=== PATIENT | female | born 1960 | race African-American/Black ===

== ENCOUNTER 2018-01-24 20:53 | Emergency (ER) | payer BC ==
[2018-01-24 21:09] VITALS: BP 143/91; PULSE 126; TEMP 98.3; BMI 20.7
--- NOTE | 2018-01-24 21:48 | PDOC ---
History of Present Illness <Casey Martínez - Last Filed: 01/25/18 01:51> - History of Present Illness Initial Comments: 01/24/18 21:43 57 year old woman with a history of HTN who presents with 1 week of feelings of anxiety, decrease sleep, lack of interest in activities, poor sleep and general weakness since her mother was hospitalized. She reports that her PCP started her on Sertraline and Hydroxyzine which she took for 1 day but stopped because she did not like how the medications made her feel "numb". She notes that she wants to feel better before she travels to the [facility] to visit her mother. She denies any chest pain, fevers, SOB, headache, abdominal pain, nausea , vomiting, diarrhea or constipation. Denies SI/HI. She has no other complaints at bedside. PMHX: HTN PSHX: none Tob: none Etoh: none Rec drugs: none Meds: amlodipine Allergies: none <Ludivina Jon - Last Filed: 01/26/18 07:39> - General Chief Complaint: Pain Stated Complaint: PAIN Time Seen by Provider: 01/24/18 21:17 Past History <Casey Martínez - Last Filed: 01/25/18 01:51> - Past Medical History COPD: No HTN: Yes - Suicide/Smoking/Psychosocial Hx Smoking History: Never smoked <Ludivina Jon - Last Filed: 01/26/18 07:39> - Past Medical History Allergies/Adverse Reactions: Allergies Allergy/AdvReac Type Severity Reaction Status Date / Time No Known Allergies Allergy Verified 01/24/18 21:09 Home Medications: Ambulatory Orders Alprazolam [Xanax] 0.25 mg PO DAILY PRN #5 tablet MDD 1 01/25/18 Review of Systems - Review of Systems Able to Perform ROS?: Yes Is the patient limited Israeli proficient: No Constitutional: No: Chills, Diaphoresis, Fever HEENTM: No: Blurred Vision, Nose Congestion, Tinnitus, Throat Swelling Respiratory: No: Cough, Orthopnea, Shortness of Breath Cardiac (ROS): No: Chest Pain, Lightheadedness, Palpitations ABD/GI: No: Constipated, Nausea, Vomiting Musculoskeletal: Yes: Muscle Weakness Neurological: No: Headache, Numbness, Tingling Endocrine: No: Excessive Sweating, Intolerance to Cold, Intolerance to Heat <Ludivina Jon - Last Filed: 01/26/18 07:39> *Physical Exam - Vital Signs Last Vital Signs Temp Pulse Resp BP Pulse Ox 98.3 F 126 H 20 143/91 99 01/24/18 21:05 01/24/18 21:05 01/24/18 21:05 01/24/18 21:05 01/24/18 21:05 <Casey Martínez - Last Filed: 01/25/18 01:51> - Vital Signs Last Vital Signs Temp Pulse Resp BP Pulse Ox 98.3 F 126 H 20 143/91 99 01/24/18 21:05 01/24/18 21:05 01/24/18 21:05 01/24/18 21:05 01/24/18 21:05 - Physical Exam Comments: 01/24/18 21:49 GENERAL: Awake, alert, and fully oriented, mildly anxious HEAD: No signs of trauma, normocephalic, atraumatic EYES: EOMI, sclera anicteric, conjunctiva clear ENT: Auricles normal inspection, hearing grossly normal, nares patent, oropharynx clear without exudates. Moist mucosa NECK: Normal ROM, supple, no lymphadenopathy, no thyromegaly or masses LUNGS: No distress, speaks full sentences, clear to auscultation bilaterally HEART: tachycardic, regular rhythm, normal S1 and S2, no murmurs, rubs or gallops, peripheral pulses normal and equal bilaterally. ABDOMEN: Soft, nontender, normoactive bowel sounds. No guarding, no rebound. No masses EXTREMITIES : Normal inspection, Normal range of motion, no edema. No clubbing or cyanosis. NEUROLOGICAL: Normal speech, normal gait, no focal sensorimotor deficits SKIN: Warm, Dry, normal turgor, no rashes or lesions noted <JulietmeredithLudivina - Last Filed: 01/26/18 07:39> ED Treatment Course - LABORATORY CBC & Chemistry Diagram: 01/24/18 23:22 01/24/18 23:22 - ADDITIONAL ORDERS Additional order review: Laboratory Results 01/24/18 01/24/18 01/24/18 23:22 23:22 23:22 Sodium 140 Potassium 3.8 Chloride 101 Carbon Dioxide 32 Anion Gap 7 L BUN 17 Creatinine 0.8 Creat Clearance w eGFR > 60 Random Glucose 71 L Calcium 9.7 Total Bilirubin 0.4 AST 19 ALT 25 Alkaline Phosphatase 48 Troponin I < 0.02 Total Protein 7.3 Albumin 3.8 TSH 2.14 Urine Color Ltyellow Urine Appearance Clear Urine pH 7.0 Ur Specific [place] 1.010 Urine Protein Negative Urine Glucose (UA) Negative Urine Ketones Negative Urine Blood Negative Urine Nitrite Negative Urine Bilirubin Negative Urine Urobilinogen Negative Ur Leukocyte Esterase Negative 01/24/18 23:22 RBC 4.51 MCV 85.6 MCHC 32.6 RDW 13.1 MPV 10.0 Neutrophils % 67.9 Lymphocytes % 21.4 Monocytes % 8.6 Eosinophils % 1.6 Basophils % 0.5 - Medications Given in the ED: ED Medications Discontinued Medications Generic Name Dose Route Start Last Admin Trade Name Jeq PRN Reason Stop Dose Admin Alprazolam 0.25 mg 01/24/18 21:59 01/24/18 22:00 Xanax - PO 01/24/18 22:00 0.25 mg ONCE ONE Administration Sodium Chloride 1,000 mls @ 1,000 mls/hr 01/24/18 21:58 01/24/18 22:30 Normal Saline - IV 01/24/18 22:57 1,000 mls/hr .Q1H ONE Administration <Casey Martínez - Last Filed: 01/25/18 01:51> - LABORATORY CBC & Chemistry Diagram: 01/24/18 23:22 01/24/18 23:22 <Ludivina Jon - Last Filed: 01/26/18 07:39> Medical Decision Making - Medical Decision Making 01/24/18 21:51 57 year old woman with a history of HTN who presents with 1 week of feelings of anxiety, decrease sleep, lack of interest in activities, poor sleep and general weakness since her mother was hospitalized. Her symptoms and history are concerning for adjustment disorder vs depressive episode vs anxiety vs hyperthyroidism vs anemia vs arrythmia. We will evaluate for this etiologies. Patient feels improved with xanax. Workup was unremarkable. Patient stable for discharge, given referral to psychiatry and advised to follow up with psych and PCP within 1 week. <Ludivina Jon - Last Filed: 01/26/18 07:39> *DC/Admit/Observation/Transfer - Discharge Dispostion Decision to Admit order: No <Casey Martínez - Last Filed: 01/25/18 01:51> <Ludivina Jon - Last Filed: 01/26/18 07:39> Diagnosis at time of Disposition: Anxiety - Discharge Dispostion Disposition: HOME Condition at time of disposition: Improved - Prescriptions Prescriptions: Alprazolam [Xanax] 0.25 mg PO DAILY PRN #5 tablet MDD 1 PRN Reason: Anxiety - Referrals Referrals: Milo Munoz MD [Primary Care Provider] - Maisha Calles MD [Staff Physician] - - Patient Instructions Printed Discharge Instructions: DI for Anxiety -- Adult Additional Instructions: You were seen in the ED for symptoms of feeling unwell and not like yourself. I suspect your symptoms were due to anxiety. You were evaluated with labwork in the ED and felt better with medications. Your results did not show an immediate need for medical admission to the hospital. You will be given a short course of xanax to help relieve your symptoms. Do not drive when taking your medications. You are advised to follow up with your primary care physician within 1 week. You are given a referral for a psychiatrist today and are advised to follow up win 1 week for further treatment and evaluation of symptoms. - Post Discharge Activity
--- NOTE | 2018-01-24 21:56 | PDOC ---
Attending Attestation - Resident Resident Name: Ludivina Jon - ED Attending Attestation I have performed the following: I have examined & evaluated the patient, The case was reviewed & discussed with the resident, I agree w/resident's findings & plan, Exceptions are as noted - HPI HPI: 01/24/18 22:11 The patient is a 57 year old female with past medical history of HTN presents to the emergency department with anxiety. The patient states secondary to personal family matters shes been experiencing increased anxiety accompanied with lack of sleep and the sensation of a knot in the stomach, with decreased appetite and fatigue for the past 1 week. The patient reports following up with PCP 3 days prior, who prescribed Sertraline and Hydroxyzine. The patient reports taking the medication for a day, but secondary to nausea she became noncompliant. The patient states she is traveling to the [facility] to see her mother, who is currently hospitalized. Denies fever, chills cough or a headache. Denies nausea or vomiting. Denies chest pain or shortness of breath. Denies diarrhea or constipation. Denies dizziness or vertigo Allergies: NKDA Social history: None reported Surgical history: None reported PCP: Milo Munoz MD - Physicial Exam PE: 01/24/18 22:37 GENERAL: The patient is awake, alert, and fully oriented, Nontoxic - in no acute distress. HEAD: Normocephalic, atraumatic. EYES: extraocular movements intact, sclera anicteric, conjunctiva clear. ENT: Normal voice, dry mucous membranes. NECK: Normal range of motion, supple LUNGS: Breath sounds equal, clear to auscultation bilaterally. No wheezes, no rhonchi, no rales. HEART: slightly tachy, normal S1 and S2 without murmur, rub or gallop. ABDOMEN: Soft, nontender, No guarding, no rebound. . No CVA tenderness EXTREMITIES: Normal range of motion, no edema. NEUROLOGICAL: No facial assymetry, Normal speech, PSYCH: Normal mood, normal affect. SKIN: Warm, Dry, normal turgor, - Medical Decision Making 01/24/18 22:38 suspect anxiety w mild dehydration due to tachycardia will ck labs to r/o anemia,metabolic dernagement no cp/sob to suggest acs/pe will give small dose ofxanax fluids for hydraiton 01/25/18 00:16 labs reviewed unremarkble will dc the pt with pmd fu return precautions were discussed will give pt rx for a couple of xanax Heart Score/ECG Review - ECG Impressions Comment:: 01/25/18 01:21 Twelve-lead EKG was performed and reviewed by me. There is normal sinus rhythm with a normal rate. Rate of 91 The axis is normal. The intervals are normal. There is normal R wave progression There are no ST or T wave abnormalities.
[2018-01-24] MEDS ORDERED: SODIUM CHLORIDE 1,000 ML IV ONE (21:58)
[2018-01-24] MEDS ORDERED: ALPRAZolam 0.25 MG TABLET PO ONE (21:59)
[2018-01-24] MEDS ORDERED: ALPRAZolam 0.25 MG TABLET ONE (22:14)
[2018-01-24 23:32] LABS: BASO % 0.5 % (0-2.0); EOS % 1.6 % (0-4.5); HEMATOCRIT 38.6 % (32.4-45.2); HEMOGLOBIN 12.6 GM/dL (10.7-15.3); LYMPH % 21.4 % (8-40); MCH 27.9 pg (25.7-33.7); MCHC 32.6 g/dl (32.0-36.0); MEAN CELL VOLUME 85.6 fl (80-96); MONO % 8.6 % (3.8-10.2); NEUT % 67.9 % (42.8-82.8); PLATELET COUNT 176 K/MM3 (134-434); RBC 4.51 M/mm3 (3.60-5.2); RDW 13.1 % (11.6-15.6); WHITE BLOOD COUNT 6.1 K/mm3 (4.0-10.0)
[2018-01-24 23:33] LABS: URINE APPEARANCE CLEAR; URINE BILIRUBIN NEGATIVE (<2.0 mg/dL); URINE COLOR LTYELLOW; URINE GLUCOSE (UA) NEGATIVE (NEGATIVE); URINE KETONE NEGATIVE (NEGATIVE); URINE LEUK ESTERASE NEGATIVE (NEGATIVE); URINE NITRITE NEGATIVE (NEGATIVE); URINE PROTEIN NEGATIVE (NEGATIVE); URINE UROBILINOGEN NEGATIVE mg/dL (0.2-1.0)
[2018-01-24 23:52] LABS: ALBUMIN 3.8 g/dl (3.4-5.0); ANION GAP 7 (8-16); BILIRUBIN,TOTAL 0.4 mg/dL (0.2-1.0); BLOOD UREA NITROGEN 17 mg/dL (7-18); CALCIUM 9.7 mg/dL (8.5-10.1); CHLORIDE 101 mmol/L (98-107); CO2 32 mmol/L (21-32); CREATININE 0.8 mg/dL (0.55-1.02); GLUCOSE,RANDOM 71 mg/dL (74-106); POTASSIUM 3.8 mmol/L (3.5-5.1); SGOT/AST 19 U/L (15-37); SGPT/ALT 25 U/L (12-78); SODIUM 140 mmol/L (136-145); TOT PROT 7.3 g/dl (6.4-8.2)
[2018-01-24 23:55] LABS: ALK PHOS 48 U/L (45-117)
--- NOTE | 2018-01-26 10:25 | EKG ---
Test Reason : Blood Pressure : / mmHG Vent. Rate : 091 BPM Atrial Rate : 091 BPM P-R Int : 182 ms QRS Dur : 064 ms QT Int : 362 ms P-R-T Axes : 083 040 054 degrees QTc Int : 445 ms NORMAL SINUS RHYTHM POSSIBLE LEFT ATRIAL ENLARGEMENT BORDERLINE ECG NO PREVIOUS ECGS AVAILABLE Confirmed by RIGO MARCOS, RONAL ([id number]) on 01/26/2018 10:24:50 AM Referred By: Confirmed By:RONAL SIERRA MD
== END 2018-01-25 01:30 | disposition home or self-care (01) ==
LOC: JER 20:53
PROC: 3E0337Z Introduction of Electrolytic and Water Balance Substance into Peripheral Vein, Percutaneous Approach (ICD-10-PCS; principal; 2018-01-24)
DX: F41.9 Anxiety disorder, unspecified (principal); I10 Essential (primary) hypertension
CPT/HCPCS: 36415; 80053; 81003; 84443; 84484; 85025; 87086; 93005; 93010; 96360; 99283-25; J7030

== ENCOUNTER 2018-04-01 09:39 | Day surgery (SDC) | payer BC ==
[2018-03-26 10:54] VITALS: BMI 19.8
[2018-04-01] MEDS ORDERED: PROPOFOL 20 ML ONE ×2 (09:53)
[2018-04-01] MEDS ORDERED: LIDOCAINE HCL/PF 2% SDV 5ML VIAL ONE (09:59)
[2018-04-01 11:33] VITALS: PULSE 78
[2018-04-01 11:34] VITALS: BP 120/75; TEMP 98
== END 2018-04-01 11:34 | disposition home or self-care (01) ==
LOC: FASU-ENDO 09:39
PROVIDERS: ATTEND Internal Medicine Gastroenterology
PROC: 0DJD8ZZ Inspection of Lower Intestinal Tract, Via Natural or Artificial Opening Endoscopic (ICD-10-PCS; principal; 2018-04-01 10:19)
DX: K57.30 Diverticulosis of large intestine without perforation or abscess without bleeding (principal); K64.0 First degree hemorrhoids; R10.9 Unspecified abdominal pain

== ENCOUNTER 2018-05-13 10:55 | Day surgery (SDC) | payer BC ==
[2018-05-13] MEDS ORDERED: PROPOFOL 20 ML ONE ×2 (11:56)
[2018-05-13] MEDS ORDERED: LIDOCAINE HCL/PF 2% SDV 5ML VIAL ONE (11:56)
[2018-05-13 12:49] VITALS: TEMP 98.3
[2018-05-13 14:22] VITALS: BP 136/90; PULSE 93
--- NOTE | 2018-05-15 18:22 | PATH ---
Surgical Pathology Report Patient Name: DORY THOMPSON [facility]. Rec. #: [id number] /Age/Gender: 1960 (Age: 58) / F Account: [id number] Location: [facility] Taken: 05/13/2018 Received: 05/13/2018 Reported: 05/15/2018 Physicians: Martha Brown M.D. Specimen(s) Received A: 2ND PORTION OF DUODENUM B: DUODENAL BULB C: BX ANTRUM D: BX GE JUNCTION Clinical History Abdominal pain Postoperative diagnosis: Duodenitis, gastritis Final Diagnosis A. DUODENUM, SECOND PORTION, BIOPSY: DUODENAL MUCOSA WITH MILD CHRONIC DUODENITIS AND PRESERVED VILLOUS ARCHITECTURE. B. DUODENAL BULB, BIOPSY: DUODENAL MUCOSA WITH MILD TO MODERATE CHRONIC DUODENITIS AND PRESERVED VILLOUS ARCHITECTURE. C. STOMACH, ANTRUM, BIOPSY: GASTRIC ANTRAL MUCOSA WITH MODERATE TO SEVERE CHRONIC ACTIVE GASTRITIS. IMMUNOHISTOCHEMICAL STAIN FOR H. PYLORI IS POSITIVE (NUMEROUS). D. GE JUNCTION, BIOPSY: GASTRIC CARDIAC TYPE MUCOSA WITH MODERATE TO SEVERE CHRONIC ACTIVE GASTRITIS. HELICOBACTER (H. PYLORI) ORGANISMS PRESENT (MANY). NO SQUAMOUS MUCOSA, INTESTINAL METAPLASIA, OR DYSPLASIA IDENTIFIED. Comment: Organisms in parts C and D appear morphologically similar. Electronically Signed Martha Gonzales M.D. Gross Description A. Received in formalin, labeled "biopsy second portion of duodenum" are 3 hernandez, irregular portions of soft tissue ranging from 0.1-0.2 cm. in greatest dimension. The specimens are submitted in toto in one cassette. B. Received in formalin, labeled "biopsy duodenal bulb" are 2 hernandez, irregular portions of soft tissue measuring 0.1 and 0.3 cm. in greatest dimension. The specimens are submitted in toto in one cassette. C. Received in formalin, labeled "biopsy antrum" is a hernandez, irregular portion of soft tissue measuring 0.3 cm. in greatest dimension. The specimen is submitted in toto in one cassette. D. Received in formalin, labeled "biopsy GE junction" is a hernandez, irregular portion of soft tissue measuring 0.3 cm. in greatest dimension. The specimen is submitted in toto in one cassette. 05/14/2018 saudi05/14/2018
== END 2018-05-13 13:00 | disposition home or self-care (01) ==
LOC: FASU-ENDO 10:55
PROVIDERS: ATTEND Internal Medicine Gastroenterology
PROC: 0DB68ZX Excision of Stomach, Via Natural or Artificial Opening Endoscopic, Diagnostic (ICD-10-PCS; 2018-05-13)
PROC: 0DB48ZX Excision of Esophagogastric Junction, Via Natural or Artificial Opening Endoscopic, Diagnostic (ICD-10-PCS; 2018-05-13)
PROC: 0DB98ZX Excision of Duodenum, Via Natural or Artificial Opening Endoscopic, Diagnostic (ICD-10-PCS; principal; 2018-05-13 12:15)
DX: K29.50 Unspecified chronic gastritis without bleeding (principal); K29.80 Duodenitis without bleeding; B96.81 Helicobacter pylori [H. pylori] as the cause of diseases classified elsewhere; R10.9 Unspecified abdominal pain

== ENCOUNTER 2018-08-12 09:36 | Day surgery (SDC) | payer BC ==
[2018-08-06 16:54] VITALS: BMI 20.3
[2018-08-12 09:52] VITALS: TEMP 98.3
[2018-08-12] MEDS ORDERED: LIDOCAINE HCL/PF 2% SDV 5ML VIAL ONE (10:46)
[2018-08-12] MEDS ORDERED: PROPOFOL 20 ML ONE (10:46)
[2018-08-12 11:54] VITALS: BP 135/75; PULSE 76
--- NOTE | 2018-08-14 12:30 | PATH ---
Surgical Pathology Report Patient Name: DORY THOMPSON [facility]. Rec. #: [id number] /Age/Gender: 1960 (Age: 58) / F Account: [id number] Location: [facility] Taken: 08/12/2018 Received: 08/12/2018 Reported: 08/14/2018 Physicians: Martha Brown M.D. Specimen(s) Received A: BX ANTRUM B: BX GE JUNCTION Clinical History H. Pylori, peptic ulcer disease Postoperative diagnosis: Gastritis Final Diagnosis A. ANTRUM, BIOPSY: MODERATE CHRONIC GASTRITIS WITH FOCAL INTESTINAL METAPLASIA. IMMUNOSTAIN IS NEGATIVE FOR H. PYLORI ORGANISMS. B. GE JUNCTION, BIOPSY: ESOPHAGOGASTRIC JUNCTIONAL (SQUAMOCOLUMNAR) MUCOSA SHOWING MODERATE CHRONIC ACTIVE INFLAMMATION. NO INTESTINAL METAPLASIA IS IDENTIFIED. Electronically Signed Stefania Mcclain M.D. Gross Description A. Received in formalin, labeled "antrum" is a hernandez, irregular portion of soft tissue measuring 0.3 cm. in greatest dimension. The specimen is submitted in toto in one cassette. B. Received in formalin, labeled "GE junction" is a hernandez, irregular portion of soft tissue measuring 0.3 cm. in greatest dimension. The specimen is submitted in toto in one cassette. 08/12/201808/12/2018
== END 2018-08-12 12:25 | disposition home or self-care (01) ==
LOC: FASU-ENDO 09:36
PROVIDERS: ATTEND Internal Medicine Gastroenterology
PROC: 0DB78ZX Excision of Stomach, Pylorus, Via Natural or Artificial Opening Endoscopic, Diagnostic (ICD-10-PCS; 2018-08-12)
PROC: 0DB48ZX Excision of Esophagogastric Junction, Via Natural or Artificial Opening Endoscopic, Diagnostic (ICD-10-PCS; principal; 2018-08-12 11:05)
DX: Z87.11 Personal history of peptic ulcer disease (principal); K29.50 Unspecified chronic gastritis without bleeding; K31.89 Other diseases of stomach and duodenum
CPT/HCPCS: 88305-TC; 88342-TC

== ENCOUNTER 2019-02-10 08:51 | Day surgery (SDC) | payer BC ==
[2019-02-09 08:55] VITALS: BMI 22.5
[2019-02-10] MEDS ORDERED: PROPOFOL 20 ML ONE ×2 (10:38)
[2019-02-10] MEDS ORDERED: LIDOCAINE HCL/PF 2% SDV 5ML VIAL ONE (10:38)
[2019-02-10 11:35] VITALS: BP 135/78; PULSE 85; TEMP 98
--- NOTE | 2019-02-12 16:37 | PATH ---
Surgical Pathology Report Patient Name: DORY THOMPSON [facility]. Rec. #: [id number] /Age/Gender: 1960 (Age: 58) / F Account: [id number] Location: [facility] Taken: 02/10/2019 Received: 02/10/2019 Reported: 02/12/2019 Physicians: Martha Brown M.D. Specimen(s) Received A: SECOND PORTION DUODENUM B: ANTRUM C: GE JUNCTION Clinical History GERD Postoperative diagnosis: Gastritis Final Diagnosis A. SECOND PORTION DUODENUM, BIOPSY: DUODENUM MUCOSA WITH NO SIGNIFICANT PATHOLOGIC CHANGE. NO HISTOLOGIC EVIDENCE OF CELIAC DISEASE. B. GASTRIC ANTRUM, BIOPSY: GASTRIC MUCOSA WITH CHRONIC GASTRITIS. IMMUNOSTAIN FOR H. PYLORI IS NEGATIVE. NEGATIVE FOR INTESTINAL METAPLASIA. C. GE JUNCTION, BIOPSY: GASTROESOPHAGEAL JUNCTIONAL MUCOSA WITH CHANGES CONSISTENT WITH REFLUX ESOPHAGITIS. NEGATIVE FOR INTESTINAL METAPLASIA. Electronically Signed Jb Duong M.D. Gross Description A. Received in formalin, labeled "biopsy second portion of duodenum" is a hernandez, irregular portion of soft tissue measuring 0.5 cm. in greatest dimension. The specimen is submitted in toto in one cassette. B. Received in formalin, labeled "biopsy gastric antrum" is a hernandez, irregular portion of soft tissue measuring 0.6 cm. in greatest dimension. The specimen is submitted in toto in one cassette. C. Received in formalin, labeled "biopsy GE junction" is a hernandez, irregular portion of soft tissue measuring 0.3 cm. in greatest dimension. The specimen is submitted in toto in one cassette. 02/11/2019 [facility]02/11/2019
== END 2019-02-10 11:45 | disposition home or self-care (01) ==
LOC: FASU-ENDO 08:51
PROVIDERS: ATTEND Internal Medicine Gastroenterology
PROC: 0DB68ZX Excision of Stomach, Via Natural or Artificial Opening Endoscopic, Diagnostic (ICD-10-PCS; 2019-02-10)
PROC: 0DB48ZX Excision of Esophagogastric Junction, Via Natural or Artificial Opening Endoscopic, Diagnostic (ICD-10-PCS; 2019-02-10)
PROC: 0DB98ZX Excision of Duodenum, Via Natural or Artificial Opening Endoscopic, Diagnostic (ICD-10-PCS; principal; 2019-02-10 10:40)
DX: K29.50 Unspecified chronic gastritis without bleeding (principal); K21.0 Gastro-esophageal reflux disease with esophagitis
CPT/HCPCS: 88305-TC; 88342-TC